=== PATIENT | female | born 1985 | race Caucasian/White ===

== ENCOUNTER → 2016-10-30 | Outpatient (CLI) | payer BC ==
[~2016-10-30] MED LIST: BACTRIM 400-801 EACH; BACTRIM DS TABL1 TA1 PO; BACTRIM DS TABL1 TA2 PO; CIPRO PO; FAMOTIDINE PO; FLAGYL PO; FLEXERIL PO; FLEXERIL10 MG PO; HYDROCODON-ACE1 EAC7 PO; HYDROCORT-PRAM120 GM TOP; IMITREX PO; KEFLEX500 M1 PO; KEFLEX500 MG PO; KETOPROFEN PO; LORTAB 5/500 TA1 TA1 PO; LORTAB 7.5-5001 TAB; LORTAB 7.5-5001 TAB PO; MEDROL4 MG/DOSE-; MIDRIN CAPSULE1 CAP PO; MOBIC PO; NO MEDICATIONS; PARAFON FORTE500 MG PO; PHENERGAN PO; PHENERGAN W/CO120 ML PO; PHENERGAN25 MG PO; PYRIDIUM PO; SKELAXIN PO; TYLENOL #3 PO; ULTRAM PO; VICODIN 5/500 T1 TAB PO; VICODIN PO; VOLTAREN75 MG PO; ZANAFLEX PO; ZITHROMAX PO; ZOFRAN PO; ZOFRANODT SL; ZOLOFT50 MG PO
--- NOTE | ~2016-10-30 | CT55 ---
[facility] A Service of [facility] & [facility] RADIOLOGY TEXT RESULTS PATIENT: VERNA REYES LOCATION: [facility] : 81 UNIT #: [id number] AGE: [address]: Prema Pablo APRN SEX: F ORDER DR: [id number] [address] [address] [id number] O MR#: [id number] Acc #: [id number] NAME: VERNA REYES : 1985 SEX: F STUDY DATE/TIME: 10/30/2016 12:31 UNIT: [facility] ROOM: STUDY DESCRIPTION: CT Chest W Con Attending Physician: Prema Pablo A.P.R.N. Referring Physician: Prema Pablo A.P.R.N. Ordering Physician: Bianca Dias M.D. Primary Care Physician: Bianca Dias M.D. MEDICAL IMAGING REPORT This report is preliminary unless electronic signature is present. EXAM CT chest with IV contrast HISTORY Chest pain and shortness of air and midsternal pain for [address] exam was performed with one or more of the following radiation dose reduction techniques: Automatic exposure control, adjustment of mA and/or kV according to patient size, and iterative reconstruction. CT chest with IV contrast demonstrates no pulmonary infiltrate or effusion. Mild linear atelectasis or scarring in the medial right middle lobe and minimal atelectasis in the posterior lower lobes. No effusions, or adenopathy. Normal caliber thoracic aorta. No pericardial effusion. Normal-caliber pulmonary arteries. Images of the upper abdomen demonstrate a 1.4 cm x 1.5 cm nodule in the inferolateral left adrenal gland, which appears new compared to CT 02/27/2011, and larger than on CT 04/14/2013. This could be an enlarging adrenal adenoma, but is nonspecific and further characterization is recommended with adrenal MRI. IMPRESSION 1. Negative CT chest. 2. Indeterminate enlarging left adrenal nodule measures 1.4 cm x 1.5 cm. Suggest further characterization with adrenal MRI. Dictated by... Luke Bolivar M.D. [facility] A Service of [facility] & [facility] RADIOLOGY TEXT RESULTS PATIENT: VERNA REYES LOCATION: [facility] : [birth year] UNIT #: [id number] AGE: [address]: Prema Pablo APRN SEX: F ORDER DR: THIS IS AN ELECTRONICALLY VERIFIED REPORT Luke Bolivar M.D. at 10/30/2016 11:15 PM DFL/psc TD: 10/30/2016 21:42 JOB #: [id number] MEDICAL IMAGING REPORT Page 1 of 1
== END | disposition home or self-care (01) ==
LOC: SCT 11:40 → SRAD 12:18
DX: R07.1 Chest pain on breathing (principal); R06.02 Shortness of breath
CPT/HCPCS: 71260; Q9967

== ENCOUNTER → 2016-11-01 | Outpatient (CLI) | payer BC ==
--- NOTE | ~2016-11-01 | MR2 ---
[facility] A Service of [facility] & [facility] RADIOLOGY TEXT RESULTS PATIENT: VERNA REYES LOCATION: [facility] : 81 UNIT #: [id number] AGE: [address]: Prema Pablo APRN SEX: F ORDER DR: [id number] [address] [address] [id number] O MR#: [id number] Acc #: [id number] NAME: VERNA REYES. : 1985 SEX: F STUDY DATE/TIME: 11/01/2016 15:48 UNIT: [facility] ROOM: STUDY DESCRIPTION: MR Abdomen WWo Cont Attending Physician: Prema Pablo A.P.R.N. Referring Physician: Prema Pablo A.P.R.N. Ordering Physician: Prema Pablo A.P.R.N. Primary Care Physician: Bianca Dias M.D. MRI CENTER REPORT This report is preliminary unless electronic signature is present. EXAM MRI abdomen with and without contrast INDICATION Indeterminate left adrenal nodule on previous chest CT. Further characterization. PROCEDURE Multiplanar, multisequence MR imaging of the abdomen prior to and following 18 mL of MultiHance. COMPARISON Chest CT from 10/30/2016. Abdomen and pelvis CT from 06/01/2015 and 04/14/2013 FINDINGS ABDOMEN WITHOUT CONTRAST: There is a 1.4 cm left adrenal nodule which shows indeterminate signal. This nodule is unchanged dating back to the 06/01/2015 CT. It is minimally larger than on the 04/14/2013 CT. There is no loss of signal between in and [id number] imaging. Right adrenal gland is unremarkable. Included portions of the liver, spleen, pancreas, gallbladder, biliary system, bowel loops have normal signal. There is a 1.1 cm cyst in the left kidney. ABDOMEN WITH CONTRAST: The left adrenal nodule does show enhancement. There is no other abnormal enhancement in the abdomen. IMPRESSION Left adrenal nodule measures 1.4 cm. It is stable compared with 06/01/2015, but slightly larger compared with 04/14/2013. This nodule has been stable for over a year. It shows indeterminate signal characteristics and cannot be characterized as a benign lipid rich STS[facility] A Service of [facility] & [facility] RADIOLOGY TEXT RESULTS PATIENT: VERNA REYES LOCATION: [facility] : 81 UNIT #: [id number] AGE: [address]: Prema Pablo APRN SEX: F ORDER DR: adenoma. Given stability, favored to represent a lipid poor adenoma. Correlate with any clinical signs or symptoms of adrenal hyperfunction. If present, biochemical testing may be helpful. Otherwise, findings are most in keeping with a benign adrenal nodule. Dictated by... Eliu Sweeney M.D. THIS IS AN ELECTRONICALLY VERIFIED REPORT Eliu Sweeney M.D. at 11/06/2016 7:14 AM Beth TD: 11/02/2016 08:58 JOB #: [id number] MRI CENTER REPORT Page 1 of 1
== END | disposition home or self-care (01) ==
LOC: SMRI 07:25
DX: E27.8 Other specified disorders of adrenal gland (principal)
CPT/HCPCS: 74183; A9581

== ENCOUNTER 2016-11-25 20:57 | Emergency (ER) | payer BC ==
[~2016-11-25 20:57] MED LIST changes: -BACTRIM 400-801 EACH
[2016-11-25] MEDS ORDERED: BACTRIM 400-801 EACH (21:02)
== END 2016-11-25 21:44 | disposition home or self-care (01) ==
LOC: SED 20:57
DX: I88.9 Nonspecific lymphadenitis, unspecified (principal); R51 Headache
CPT/HCPCS: 96372; 99283; J1885